=== PATIENT | female | born 1985 | race Two or more races ===

== ENCOUNTER 2019-07-31 09:52 | Emergency (ER) | payer MEDICAID ==
[~2019-07-31] VITALS: Ht 170.2 cm; Wt 136.0 kg
[2019-07-31 10:17] VITALS: BP 136/85
== END 2019-07-31 12:45 | disposition home or self-care (01) ==
LOC: ER 09:52
DX: H01.004 Unspecified blepharitis left upper eyelid (principal); H00.014 Hordeolum externum left upper eyelid
CPT/HCPCS: 99283

== ENCOUNTER 2021-03-20 14:52 | Emergency (ER) | payer MEDICAID ==
[~2021-03-20] VITALS: Ht 170.2 cm; Wt 136.0 kg
[2021-03-20] MEDS ORDERED: KETOROLAC 60MG/2ML VIAL IM ONE (16:00)
[2021-03-20 16:14] VITALS: BP 142/87
[2021-03-20] MEDS ORDERED: NAPR-681 MT (17:02)
== END 2021-03-20 18:03 | disposition home or self-care (01) ==
LOC: ER 14:52
DX: M25.572 Pain in left ankle and joints of left foot (principal)
CPT/HCPCS: 73610; 99283

== ENCOUNTER 2021-07-24 16:24 | Emergency (ER) | payer MEDICAID, OTHER ==
[~2021-07-24] VITALS: Ht 170.2 cm; Wt 90.1 kg
[~2021-07-24 16:24] MED LIST: NAPR-681 MT
[2021-07-24 16:39] VITALS: BP 143/110
[2021-07-24] MEDS ORDERED: ACETAMINOPHEN 325MG TABLET PO ONE (17:00)
== END 2021-07-24 19:17 | disposition home or self-care (01) ==
LOC: ER 16:24
DX: B34.9 Viral infection, unspecified (principal); Z20.822 Contact with and (suspected) exposure to COVID-19
CPT/HCPCS: 71045; 87426; 99284

== ENCOUNTER 2023-01-15 21:05 | Emergency (ER) | payer MEDICAID, OTHER ==
[~2023-01-15] VITALS: Ht 170.2 cm; Wt 148.5 kg
[2023-01-15 21:51] VITALS: O2SAT 100
[2023-01-15 22:37] LABS: BASOPHILS % 0.5 % (0.0-2.0); EOSINOPHILS % 0.9 % (0.0-5.0); HEMATOCRIT. 39.9 % (36.0-48.0); HEMOGLOBIN. 13.5 g/dL (12.0-16.0); LYMPHOCYTES % 27.9 % (20.0-50.0); MEAN CORPUSCULAR HEMOGLOBIN 28.9 pg (28.0-32.0); MEAN CORPUSCULAR VOLUME 85.5 fL (81.0-99.0); MONOCYTES % 5.8 % (2.0-8.0); NEUTROPHILS % 64.9 % (40.0-76.0); PLATELET 272 x1000/uL (130-400); RED BLOOD CELL COUNT 4.67 mill/uL (4.2-5.4); RED CELL DISTRIBUTION WIDTH 14.4 % (11.6-14.6)
[2023-01-15 22:44] LABS: CHLORIDE 108 mEq/L (98-107)
[2023-01-16 00:28] LABS: CLARITY URINE CLEAR (CLEAR); COLOR URINE YELLOW (YELLOW); KETONES URINE NEGATIVE (NEGATIVE); LEUKOCYTE ESTERASE URINE NEGATIVE (NEGATIVE); NITRITE URINE NEGATIVE (NEGATIVE); OCCULT BLOOD URINE TRACE (NEGATIVE); PROTEIN URINE NEGATIVE (NEGATIVE); SPECIFIC GRAVITY URINE 1.014 (1.005-1.030); UROBILINOGEN URINE 0.2 E.U./dL (0.2-1.0)
[2023-01-16] MEDS ORDERED: IBUP-2029 MT (03:22)
[2023-01-16 03:25] VITALS: BP 150/80; PULSE 100; RESP 18; TEMP 98.3
== END 2023-01-16 03:36 | disposition home or self-care (01) ==
LOC: ER 21:05
DX: R07.89 Other chest pain (principal); Z98.890 Other specified postprocedural states
CPT/HCPCS: 36415; 71045; 80053; 81003; 81025; 84484; 85025; 93005; 99285

== ENCOUNTER 2024-01-26 11:55 | Emergency (ER) | payer OTHER ==
[~2024-01-26] VITALS: Ht 170.2 cm; Wt 150.0 kg
[~2024-01-26 11:55] MED LIST changes: +IBUP-2029 MT
[2024-01-26 12:04] VITALS: BP 134/75; PULSE 92; RESP 18; TEMP 98.1; O2SAT 96
[2024-01-26] MEDS: DIPHENHYDRAMINE 25MG CAPSULE PO ONE (13:00)
[2024-01-26] MEDS: METOCLOPRAMIDE HCL 10MG TABLET PO ONE (13:00)
[2024-01-26] MEDS: IBUPROFEN 600MG TABLET PO ONE (13:00)
== END 2024-01-26 15:15 | disposition home or self-care (01) ==
LOC: ER 11:55
DX: R51.9 Headache, unspecified (principal); Z98.890 Other specified postprocedural states
CPT/HCPCS: 99281